=== PATIENT | female | born 1985 | race Caucasian/White ===

== ENCOUNTER 2020-04-02 14:19 | Day surgery (SDC) | payer OTHER, SELFPAY ==
[2020-04-02] VITALS (8 sets, daily range): BP systolic 94–145; BP diastolic 58–85; PULSE 83–138; RESP 14–20; TEMP 37.2–37.4; O2SAT 94–98; BMI 36.6
--- NOTE | 2020-04-02 15:51 | ED_ITS ---
Documented by User: GEOFF Ernst 04/04/20 09:23 HPI - Abdominal Pain General: Chief Complaint: Abdominal Pain Stated Complaint: Rt side pain Time Seen by Provider: 04/02/20 15:51 History of Present Illness: HPI narrative: Patient is a 34-year-old female comes to the ED with abdominal pain. Patient says at 3:00 this morning she woke up with sharp pain in right lower quadrant of abdomen. She says the pain briefly went away today but it has come back. She is also having nausea and fever. Endorses decreased appetite denies any vomiting, diarrhea, dysuria, hematuria. Associated Symptoms: Reports fever(s) and nausea; Denies chills, constipation, diarrhea, dysuria, hematochezia, hematuria and vomiting Review of Systems Const: Reports: fever(s) and change in appetite (decreased appetite); Denies: chills or fatigue Eyes: Denies: change in vision or eye discomfort ENMT: Denies: throat pain, odynophagia, nasal discharge or nasal congestion Card: Denies: chest pain, palpitations, edema, swelling of feet/ankles, dyspnea on exertion or orthopnea Resp: Denies: dyspnea, productive cough or non-productive cough GI: Reports: abdominal pain (RLQ) and nausea; Denies: vomiting, diarrhea, constipation or hematochezia : Denies: flank pain, dysuria or hematuria Musc: Denies: neck pain, back pain or extremity swelling Skin/Breast: Denies: rash or new lesions Neuro: Denies: headache(s), numbness in extremities or weakness in extremities PFS ED PFSH: Surgical History History of delivery S/P laparoscopic appendectomy (04/02/20) Physical Exam Const: COMMON NORMALS: patient oriented x3 and alert GENERAL APPEARANCE: cooperative; not comfortable (Patient appears uncomfortable and in pain.) HENMT: COMMON NORMALS: normocephalic HEAD & SCALP: normocephalic MOUTH: Normal oral and palatal mucosa present THROAT: posterior oropharynx normal and uvula midline Eye: COMMON NORMALS: Equal, round and reactive pupils present PUPIL: Yes Equal, round and reactive pupils present Neck/C-Spine: COMMON NORMALS: supple GENERAL: Yes normal visual inspection Resp: COMMON NORMALS: normal respiratory effort, No retractions, No use of accessory muscles and clear to auscultation bilaterally AUSCULTATION: clear to auscultation bilaterally Cardio: COMMON NORMALS: regular rate, regular rhythm, S1 normal heart sound present, S2 normal heart sound present, No gallops present (Cardio), No clicks present (Cardio), No murmurs present (Cardio) and Peripheral pulses 2+ throughout RATE: regular rate RHYTHM: regular rhythm HEART SOUNDS: S1 normal heart sound present and S2 normal heart sound present PERIPHERAL PULSES: Peripheral pulses 2+ throughout GI: COMMON NORMALS: Normal to inspection, nondistended, normoactive bowel sounds present, Soft to palpation and no masses PALPATION: Yes Soft to palpation and Yes Tenderness to palpation present (GI) Details: RLQ (Positive McBurney's point. Positive Rovsing sign) : COMMON NORMALS: Yes no CVA tenderness BLADDER/KIDNEY EXAM: Yes no CVA tenderness Back/Pelvis: COMMON NORMALS: no CVA tenderness Extremity: COMMON NORMALS: normal to inspection Neuro: COMMON NORMALS: patient oriented x3 SENSORIUM/ORIENTATION: Yes alert GAIT: Yes Normal gait present Skin: GENERAL SKIN EXAM: dry skin Course Vital Signs: Vital signs: Vital Signs Temperature 99.0 F 04/02/20 20:22 Pulse Rate 83 04/02/20 20:22 Respiratory Rate 18 04/02/20 20:22 Blood Pressure 117/60 04/02/20 20:22 Pulse Oximetry 98 04/02/20 20:22 MDM - Abdominal Pain Lab Data: Attestation: I reviewed the patient's lab results. Labs: Lab Results 04/02/20 04/02/20 04/02/20 Range/Units 16:06 16:06 16:06 WBC 15.9 H (4.0-10.0) 10^3/ uL RBC 4.28 (4.1-5.3) 10^6/u L Hgb 11.9 (11.5-15.3) g/dL Hct 37.0 (37.0-47.0) % MCV 86.4 (81-99) fL MCH 27.8 L (28.0-34.0) pg MCHC 32.2 (30.0-36.0) g/dL RDW 12.8 (12.1-15.1) % Plt Count 293 (130-400) 10^3/c mm MPV 9.8 (7.4-10.4) fL Neut % (Auto) 82.0 % Lymph % (Auto) 10.4 % [place] % (Auto) 6.7 % Eos % (Auto) 0.4 % Baso % (Auto) 0.2 % Neut # (Auto) 13.03 H (1.8-7.7) 10^3/u L Lymph # (Auto) 1.7 (0.8-4.8) 10^3/u L [place] # (Auto) 1.1 H (0.2-0.9) 10^3/u L Eos # (Auto) 0.1 (0.0-0.8) 10^3/u L Baso # (Auto) 0.0 (0.0-0.1) 10^3/u L Nucleated RBC % (a uto) 0 % Nucleated RBCs # 0.0 /100WBC Sodium 137 (136-145) mmol/L Potassium 3.9 (3.5-5.1) mmol/L Chloride 100 (98-107) mmol/L Carbon Dioxide 24 (22-29) mmol/L Anion Gap 16.9 (5-19) BUN 9 (6-20) mg/dL Creatinine 0.5 (0.5-0.9) mg/dL GFR Calculation 141.2 H (90-130) mL/min Glucose 108 (65-115) mg/dL Calculated Osmolal ity 283 L (285-295) mOsm/k g Calcium 9.3 (8.5-10.5) mg/dL Total Bilirubin 0.7 (0.15-1.2) mg/dL AST 14 (0-32) U/L ALT 20 (0-33) U/L Alkaline Phosphata se 68 (35-105) IU/L Total Protein 7.4 (6.6-8.7) g/dL Albumin 4.4 (3.5-5.2) g/dL Globulin 3.0 (1.3-4.6) g/dL Lipase 25 (13-60) U/L HCG, Qual Negative (Negative) Urine Color (Yellow) Urine Appearance (CLEAR) Urine pH (5-7) Ur Specific Gravit y (1.005-1.030) Urine Protein (Negative) Urine Glucose (UA) (Normal) Urine Ketones (Negative) Urine Blood (Negative) Urine Nitrate (Negative) Urine Bilirubin (Negative) Urine Urobilinogen (Negative) mg/dL Ur Leukocyte Sharon ase (Negative) Urine RBC (0-2) /hpf Urine WBC (0-5) /hpf Ur Squamous Epith Cells (0-5) /hpf Amorphous Sediment Urine Bacteria (NONE) /hpf Urine Mucus /hpf 04/02/20 04/02/20 Range/Units 16:06 16:06 WBC (4.0-10.0) 10^3/ uL RBC (4.1-5.3) 10^6/u L Hgb (11.5-15.3) g/dL Hct (37.0-47.0) % MCV (81-99) fL MCH (28.0-34.0) pg MCHC (30.0-36.0) g/dL RDW (12.1-15.1) % Plt Count (130-400) 10^3/c mm MPV (7.4-10.4) fL Neut % (Auto) % Lymph % (Auto) % [place] % (Auto) % Eos % (Auto) % Baso % (Auto) % Neut # (Auto) (1.8-7.7) 10^3/u L Lymph # (Auto) (0.8-4.8) 10^3/u L [place] # (Auto) (0.2-0.9) 10^3/u L Eos # (Auto) (0.0-0.8) 10^3/u L Baso # (Auto) (0.0-0.1) 10^3/u L Nucleated RBC % (a uto) % Nucleated RBCs # /100WBC Sodium (136-145) mmol/L Potassium (3.5-5.1) mmol/L Chloride (98-107) mmol/L Carbon Dioxide (22-29) mmol/L Anion Gap (5-19) BUN (6-20) mg/dL Creatinine (0.5-0.9) mg/dL GFR Calculation (90-130) mL/min Glucose (65-115) mg/dL Calculated Osmolal ity (285-295) mOsm/k g Calcium (8.5-10.5) mg/dL Total Bilirubin (0.15-1.2) mg/dL AST (0-32) U/L ALT (0-33) U/L Alkaline Phosphata se (35-105) IU/L Total Protein (6.6-8.7) g/dL Albumin (3.5-5.2) g/dL Globulin (1.3-4.6) g/dL Lipase (13-60) U/L HCG, Qual Negative (Negative) Urine Color Yellow (Yellow) Urine Appearance Clear (CLEAR) Urine pH 7 (5-7) Ur Specific Gravit y 1.015 (1.005-1.030) Urine Protein Neg (Negative) Urine Glucose (UA) Norm (Normal) Urine Ketones Negative (Negative) Urine Blood Neg (Negative) Urine Nitrate Negative (Negative) Urine Bilirubin Neg (Negative) Urine Urobilinogen Norm (Negative) mg/dL Ur Leukocyte Sharon ase Trace H (Negative) Urine RBC None (0-2) /hpf Urine WBC 5-10 H (0-5) /hpf Ur Squamous Epith Cells 0-4 H (0-5) /hpf Amorphous Sediment Not Reportable Urine Bacteria Trace (NONE) /hpf Urine Mucus 2+ /hpf Discharge Plan Discharge Patient Disposition: Admitted As Inpatient Condition: Stable Discharge Diet: Advance as tolerated Sign Out Sign Out Data: Patient Sign Out occurred on 04/02/20 at 17:24. Patient's care was discussed, and care was transferred from to DAISHA Magana. Coding Level of Care Code ED Boxing Promoter for Chg Fwd Exam Comprehensive Documented by User: DAISHA Magana 04/02/20 21:05 HPI - Abdominal Pain General: Chief Complaint: Abdominal Pain Stated Complaint: Rt side pain Time Seen by Provider: 04/02/20 15:51 PFSH ED PFSH: Surgical History History of delivery S/P laparoscopic appendectomy (04/02/20) Course Consultations: Consultation #1: Dr Rodriguez -CT scan and serology findings and clinical presentation discussed. Patient has penicillin allergy, recommended Cipro and Flagyl IV, plans to take patient to the OR, last meal was at a pproximately 11 AM this morning. Time: 17:50 Vital Signs: Vital signs: Vital Signs Temperature 99.0 F 04/02/20 20:22 Pulse Rate 83 04/02/20 20:22 Respiratory Rate 18 04/02/20 20:22 Blood Pressure 117/60 04/02/20 20:22 Pulse Oximetry 98 04/02/20 20:22 MDM - Abdominal Pain MDM Narrative: Medical decision making narrative: 34-year-old female patient presents to the emergency department with right lower quadrant pain since 3 AM. She reports her pain is controlled, she was updated on findings of CT scan with acute appendicitis as finding. I discussed my conversation with Dr. Rodriguez and plan to go to the operating room for appendectomy. She reports pain is controlled as long as she does not move. Questions were answered. Differential Diagnosis: Differential diagnosis abdominal pain: Likely abdominal pain and acute appendicitis Lab Data: Attestation: I reviewed the patient's lab results. Labs: Lab Results 04/02/20 04/02/20 04/02/20 Range/Units 16:06 16:06 16:06 WBC 15.9 H (4.0-10.0) 10^3/ uL RBC 4.28 (4.1-5.3) 10^6/u L Hgb 11.9 (11.5-15.3) g/dL Hct 37.0 (37.0-47.0) % MCV 86.4 (81-99) fL MCH 27.8 L (28.0-34.0) pg MCHC 32.2 (30.0-36.0) g/dL RDW 12.8 (12.1-15.1) % Plt Count 293 (130-400) 10^3/c mm MPV 9.8 (7.4-10.4) fL Neut % (Auto) 82.0 % Lymph % (Auto) 10.4 % [place] % (Auto) 6.7 % Eos % (Auto) 0.4 % Baso % (Auto) 0.2 % Neut # (Auto) 13.03 H (1.8-7.7) 10^3/u L Lymph # (Auto) 1.7 (0.8-4.8) 10^3/u L [place] # (Auto) 1.1 H (0.2-0.9) 10^3/u L Eos # (Auto) 0.1 (0.0-0.8) 10^3/u L Baso # (Auto) 0.0 (0.0-0.1) 10^3/u L Nucleated RBC % (a uto) 0 % Nucleated RBCs # 0.0 /100WBC Sodium 137 (136-145) mmol/L Potassium 3.9 (3.5-5.1) mmol/L Chloride 100 (98-107) mmol/L Carbon Dioxide 24 (22-29) mmol/L Anion Gap 16.9 (5-19) BUN 9 (6-20) mg/dL Creatinine 0.5 (0.5-0.9) mg/dL GFR Calculation 141.2 H (90-130) mL/min Glucose 108 (65-115) mg/dL Calculated Osmolal ity 283 L (285-295) mOsm/k g Calcium 9.3 (8.5-10.5) mg/dL Total Bilirubin 0.7 (0.15-1.2) mg/dL AST 14 (0-32) U/L ALT 20 (0-33) U/L Alkaline Phosphata se 68 (35-105) IU/L Total Protein 7.4 (6.6-8.7) g/dL Albumin 4.4 (3.5-5.2) g/dL Globulin 3.0 (1.3-4.6) g/dL Lipase 25 (13-60) U/L HCG, Qual Negative (Negative) Urine Color (Yellow) Urine Appearance (CLEAR) Urine pH (5-7) Ur Specific Gravit y (1.005-1.030) Urine Protein (Negative) Urine Glucose (UA) (Normal) Urine Ketones (Negative) Urine Blood (Negative) Urine Nitrate (Negative) Urine Bilirubin (Negative) Urine Urobilinogen (Negative) mg/dL Ur Leukocyte Sharon ase (Negative) Urine RBC (0-2) /hpf Urine WBC (0-5) /hpf Ur Squamous Epith Cells (0-5) /hpf Amorphous Sediment Urine Bacteria (NONE) /hpf Urine Mucus /hpf 04/02/20 04/02/20 Range/Units 16:06 16:06 WBC (4.0-10.0) 10^3/ uL RBC (4.1-5.3) 10^6/u L Hgb (11.5-15.3) g/dL Hct (37.0-47.0) % MCV (81-99) fL MCH (28.0-34.0) pg MCHC (30.0-36.0) g/dL RDW (12.1-15.1) % Plt Count (130-400) 10^3/c mm MPV (7.4-10.4) fL Neut % (Auto) % Lymph % (Auto) % [place] % (Auto) % Eos % (Auto) % Baso % (Auto) % Neut # (Auto) (1.8-7.7) 10^3/u L Lymph # (Auto) (0.8-4.8) 10^3/u L [place] # (Auto) (0.2-0.9) 10^3/u L Eos # (Auto) (0.0-0.8) 10^3/u L Baso # (Auto) (0.0-0.1) 10^3/u L Nucleated RBC % (a uto) % Nucleated RBCs # /100WBC Sodium (136-145) mmol/L Potassium (3.5-5.1) mmol/L Chloride (98-107) mmol/L Carbon Dioxide (22-29) mmol/L Anion Gap (5-19) BUN (6-20) mg/dL Creatinine (0.5-0.9) mg/dL GFR Calculation (90-130) mL/min Glucose (65-115) mg/dL Calculated Osmolal ity (285-295) mOsm/k g Calcium (8.5-10.5) mg/dL Total Bilirubin (0.15-1.2) mg/dL AST (0-32) U/L ALT (0-33) U/L Alkaline Phosphata se (35-105) IU/L Total Protein (6.6-8.7) g/dL Albumin (3.5-5.2) g/dL Globulin (1.3-4.6) g/dL Lipase (13-60) U/L HCG, Qual Negative (Negative) Urine Color Yellow (Yellow) Urine Appearance Clear (CLEAR) Urine pH 7 (5-7) Ur Specific Gravit y 1.015 (1.005-1.030) Urine Protein Neg (Negative) Urine Glucose (UA) Norm (Normal) Urine Ketones Negative (Negative) Urine Blood Neg (Negative) Urine Nitrate Negative (Negative) Urine Bilirubin Neg (Negative) Urine Urobilinogen Norm (Negative) mg/dL Ur Leukocyte Sharon ase Trace H (Negative) Urine RBC None (0-2) /hpf Urine WBC 5-10 H (0-5) /hpf Ur Squamous Epith Cells 0-4 H (0-5) /hpf Amorphous Sediment Not Reportable Urine Bacteria Trace (NONE) /hpf Urine Mucus 2+ /hpf Other Data: Other Data: Spectral Image [address] [address] [address] Scan Report Signed with Addenda Patient: Yanira Simpson #: [id number] : 1985Acct#:[id number] Age/Sex: 34 / FADM Date: 04/02/20 Loc: ERRoom/Bed: Attending Dr: Ordering Provider/Ordering MD: Nicholas Wasserman Date of Service: 04/02/20 Procedure(s): CT abdomen pelvis w con* [id number] Accession Number(s): [id number] Report Number: [id number]/CT abdomen pelvis w con* [id number] CRITICAL RESULT: The study was personally discussed on the telephone with ALONDRA Sarmiento on 04/02/2020 5:43 PM [employer]. The results were understood and acknowledged. Radiation Dose CTDIVOL = (mGy): DLP = 1448.3 (mGy-cm) Addendum Dictated By: Joana Hayden MD Addendum Signed By: Joana Hayden MDSigned Date/Time:04/02/20 1744 Addendum Cosigned By: PROCEDURE INFORMATION: Exam: CT Abdomen And Pelvis With Contrast Exam date and time: 04/02/2020 4:59 PM Age: 34 years old Clinical indication: Abdominal pain; Rebound pain; Right lower quadrant (rlq); Prior surgery; Surgery date: 6+ months; Surgery type: C section; Additional info: Rlq, n/v TECHNIQUE: Imaging protocol: Computed tomography of the abdomen and pelvis with intravenous contrast. Radiation optimization: All CT scans at this facility use at least one of these dose optimization techniques: automated exposure control; mA and/or kV adjustment per patient size (includes targeted exams where dose is matched to clinical indication); or iterative reconstruction. Contrast material: OMNIPAQUE 300; Contrast volume: 95 ml; Contrast route: INTRAVENOUS (IV); COMPARISON: No relevant prior studies available. RADIATION DOSE METRICS: Total DLP (mGy-cm): 1448.3 FINDINGS: Liver: 8 mm low-density in the right hepatic lobe has benign features. Follow-up is not necessary. Gallbladder and bile ducts: Normal. No calcified stones. No ductal dilation. Pancreas: Normal. No ductal dilation. Spleen: Normal. No splenomegaly. Adrenal glands: Normal. No mass. Kidneys and ureters: Normal. No hydronephrosis. Stomach and bowel: Unremarkable. No obstruction. No mucosal thickening. Appendix: Appendix is mildly thickened measuring 8.6 mm. There is subtle periappendiceal hazy stranding. Findings are consistent with acute appendicitis. Intraperitoneal space: Unremarkable. No free air. No significant fluid collection. Vasculature: Unremarkable. No abdominal aortic aneurysm. Lymph nodes: Unremarkable. No enlarged lymph nodes. Urinary bladder: Unremarkable as visualized. Reproductive: Unremarkable as visualized. Bones/joints: Unremarkable. No acute fracture. Soft tissues: Unremarkable. CT/CT abdomen pelvis w con* [id number] IMPRESSION: Findings consistent with acute appendicitis. Radiation Dose CTDIVOL = (mGy): DLP = 1448.3 (mGy-cm) Dictated By:Joana Hayden MD Signed By:Joana Hayden MDSigned Date/Time:04/02/201738 DD/ 37 Discharge Plan Discharge Patient Disposition: Admitted As Inpatient Condition: Stable Discharge Diet: Advance as tolerated Sign Out Sign Out Data: Patient Sign Out occurred on 04/02/20 at 17:24. Patient's care was discussed, a nd care was transferred from to DAISHA Magana. Coding Level of Care Code ED Boxing Promoter for Chg Fwd Exam Comprehensive
--- NOTE | 2020-04-02 16:01 | CTR_ITS ---
PROCEDURE INFORMATION: Exam: CT Abdomen And Pelvis With Contrast Exam date and time: 04/02/2020 4:59 PM Age: 34 years old Clinical indication: Abdominal pain; Rebound pain; Right lower quadrant (rlq); Prior surgery; Surgery date: 6+ months; Surgery type: C section; Additional info: Rlq, n/v TECHNIQUE: Imaging protocol: Computed tomography of the abdomen and pelvis with intravenous contrast. Radiation optimization: All CT scans at this facility use at least one of these dose optimization techniques: automated exposure control; mA and/or kV adjustment per patient size (includes targeted exams where dose is matched to clinical indication); or iterative reconstruction. Contrast material: OMNIPAQUE 300; Contrast volume: 95 ml; Contrast route: INTRAVENOUS (IV); COMPARISON: No relevant prior studies available. RADIATION DOSE METRICS: Total DLP (mGy-cm): 1448.3 FINDINGS: Liver: 8 mm low-density in the right hepatic lobe has benign features. Follow-up is not necessary. Gallbladder and bile ducts: Normal. No calcified stones. No ductal dilation. Pancreas: Normal. No ductal dilation. Spleen: Normal. No splenomegaly. Adrenal glands: Normal. No mass. Kidneys and ureters: Normal. No hydronephrosis. Stomach and bowel: Unremarkable. No obstruction. No mucosal thickening. Appendix: Appendix is mildly thickened measuring 8.6 mm. There is subtle periappendiceal hazy stranding. Findings are consistent with acute appendicitis. Intraperitoneal space: Unremarkable. No free air. No significant fluid collection. Vasculature: Unremarkable. No abdominal aortic aneurysm. Lymph nodes: Unremarkable. No enlarged lymph nodes. Urinary bladder: Unremarkable as visualized. Reproductive: Unremarkable as visualized. Bones/joints: Unremarkable. No acute fracture. Soft tissues: Unremarkable. CT/CT abdomen pelvis w con* [id number] IMPRESSION: Findings consistent with acute appendicitis. Radiation Dose CTDIVOL = (mGy): DLP = 1448.3 (mGy-cm)
[2020-04-02 16:14] LABS: Basophils % 0.2 %; Eosinophils # 0.1 10^3/uL (0.0-0.8); Eosinophils % 0.4 %; Hemoglobin 11.9 g/dL (11.5-15.3); Lymphocytes # 1.7 10^3/uL (0.8-4.8); Lymphocytes % 10.4 %; Mean Corpuscular HGB Conc 32.2 g/dL (30.0-36.0); Mean Corpuscular Hemoglobin 27.8 pg (28.0-34.0); Mean Corpuscular Volume 86.4 fL (81-99); Mean Platelet Volume 9.8 fL (7.4-10.4); Monocytes # 1.1 10^3/uL (0.2-0.9); Monocytes % 6.7 %; Neutrophils # 13.03 10^3/uL (1.8-7.7); Nucleated Red Blood Cells % 0 %; Platelet Count 293 10^3/cmm (130-400); Red Blood Count 4.28 10^6/uL (4.1-5.3); Red Cell Distribution Width 12.8 % (12.1-15.1); White Blood Count 15.9 10^3/uL (4.0-10.0)
[2020-04-02] MEDS: sodium chloride 0.9% 1,000 ML 999 ML IV (16:14)
[2020-04-02] MEDS: morphine 4 mg/mL SDV 1 mL 2 MG IVP (16:14)
[2020-04-02] MEDS: ondansetron 2 mg/ML SDV 2 mL 4 MG IVP (16:14)
[2020-04-02 16:15] LABS: HCG Qualitative Urine. Negative (Negative)
[2020-04-02 16:30] LABS: HCG, Serum Qual Negative (Negative)
[2020-04-02 16:35] LABS: Alanine Aminotransferase 20 U/L (0-33); Albumin Level 4.4 g/dL (3.5-5.2); Alkaline Phosphatase 68 IU/L (35-105); Anion Gap 16.9 (5-19); Aspartate Amino Transferase 14 U/L (0-32); Blood Urea Nitrogen 9 mg/dL (6-20); Calcium 9.3 mg/dL (8.5-10.5); Carbon Dioxide 24 mmol/L (22-29); Chloride 100 mmol/L (98-107); Glomerular Filtration Rate 141.2 mL/min (90-130); Glucose 108 mg/dL (65-115); Lipase 25 U/L (13-60); Osmolality Calculated 283 mOsm/kg (285-295); Potassium 3.9 mmol/L (3.5-5.1); Sodium 137 mmol/L (136-145); Total Bilirubin 0.7 mg/dL (0.15-1.2); Total Protein 7.4 g/dL (6.6-8.7)
[2020-04-02 16:55] LABS: Specific Gravity, Urine 1.015 (1.005-1.030); Urine Appearance Clear (CLEAR); Urine Color Yellow (Yellow); pH Urine 7 (5-7)
[2020-04-02 16:56] LABS: Add Urine Microscopic? YES; Bilirubin Urine Neg (Negative); Blood Urine Neg (Negative); Glucose Urine UA Norm (Normal); Ketones Urine Negative (Negative); Leukocyte Esterase Urine Trace (Negative); Nitrate Urine Negative (Negative); Protein Urine Neg (Negative); Urobilinogen Urine Norm (Negative)
[2020-04-02 16:57] LABS: Bacteria Urine TRACE /hpf; Squamous Epithelial Cell Urine 0-4 /hpf (0-5)
[2020-04-02 16:58] LABS: Add Urine Culture? No; Mucus Urine 2+ /hpf
[2020-04-02] MEDS: iohexol 300 mg/mL 100 mL Btl IV (17:04)
[2020-04-02] MEDS: morphine 4 mg/mL SDV 1 mL IVP (18:02)
[2020-04-02] MEDS: ciprofloxacin 400 MG/200 ML PREMIX 200 MG IV (18:03)
--- NOTE | 2020-04-02 18:23 | P.HP_ITS ---
Providers/Chief Complaint Chief Complaint: Rt side pain History of Present Illness Daly Simpson is a 34 year old female who presented to the ER today with complaints of right lower quadrant with started at 3 AM this morning. Patient had some nausea but no vomiting. Patient had a low-grade fever. Denies any constipation or diarrhea. No similar episodes in the past. Patient is otherwi se healthy and is undergoing work-up for fatigue with a specialist at [facility] Review of Systems General: Reports: 10 or more systems reviewed and unremarkable except in HPI and below Medications/Allergies Home Medications Medication Instructions Recorded Confirmed Last Taken Type Adrenevive 1 tab PO DAILY 04/02/20 04/02/20 04/01/20 History hydrocodone-acetaminophen [[place]] 1 tab PO Q6H 7 Days #20 tab 04/02/20 Unknown Rx iron 1 tab PO DAILY 04/02/20 04/02/20 04/01/20 History lactobacillus combination no.4 3,000 mmu cells PO DAILY 04/02/20 04/02/20 04/01/20 History [Probiotic] vitamin D3-vitamin K2 1 cap PO DAILY 04/02/20 04/02/20 04/01/20 History Allergies Allergy/AdvReac Type Severity Reaction Status Date / Time Penicillins Allergy Unknown Verified 04/02/20 14:34 PFSH Acute PFSH: Surgical History History of delivery S/P laparoscopic appendectomy (04/02/20) Vitals/I&O/Wt Last Vital Signs Temp 99.3 F 04/02/20 14:36 Pulse 115 H 04/02/20 14:36 Resp 14 04/02/20 14:36 BP 131/84 04/02/20 14:36 Pulse Ox 98 04/02/20 14:36 Weight last 48 hrs Weight 234 lb Physical Exam Narrative: EXAM NARRATIVE: HEENT: Normocephalic Eye: Sclera /conjunctiva normal Respiratory and chest: Bilateral clear breath sounds on auscultation Cardiovascular: Normal S1 and S2 heart sounds Abdomen: Soft to palpation, tender right lower quadrant, no guarding or rigidity, Rovsing sign positive Neurological: Oriented to place person and time Skin: Intact, no lesions appreciated on gross exam Data : 04/02/20 16:06 04/02/20 16:06 A&P Assessment and plan (1) Acute appendicitis: 34-year-old female with 16-hour history of right lower quadrant pain, leukocytosis and CT scan showing acute appendicitis. Plan for laparoscopic possible open appendectomy Procedure, risks, benefits and alternatives have been discussed with the patient who wishes to proceed with surgery. 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
--- NOTE | 2020-04-02 18:41 | ANES.PREANE2 ---
Pre-Anesthetic Assessment Pre-Anesthetic Assessment: Height/Weight: Height 1.7 m Weight 106.141 kg Temp Pulse Resp BP Pulse Ox 99.3 F 138 H 16 145/85 98 04/02/20 14:36 04/02/20 18:33 04/02/20 18:33 04/02/20 18:33 04/02/20 18:33 Preop Diagnosis: Acute appendicitis Proposed Procedure: Operation Date: 04/02/20 18:15 Proposed Procedures p Laparoscopic Appendectomy(Not Applicable) - Drew Rodriguez MD Was Beta Fernando taken within 24 hours: N/A Social: Social History: No alcohol and No tobacco (history quit 3 year ago) Exam: Pre-Anes Outpt Exam: alert, oriented x 3, clear to auscultation bilaterally and regular rate & rhythm Airway: Submandibular: WNL Cervical ROM: WNL MP: 2 Dentition: Full History/ROS: Other Pulmonary: Pulmonary: SOB (due to anemia) CV/HEM: CV/HEM: Anemia, Arrythmia and DVT (small in lower extremities but resolved) : : None reported Hepatic: Hepatic: None reported GI: GI: None reported Metabolic: Metabolic: None reported Musc/skel: Musc/skel: None reported Neuropsych: Neuropsych: Anxiety and Depression Anesthetic Plan: ASA status: 2 Anesthesia: General Risk of > 500 ml blood loss (7ml/kg in children): No Meds/Allergies Current Medications: Current Medications Generic Name Dose Route Start Last Admin Trade Name Freq PRN Reason Stop Dose Admin Ciprofloxacin/Dext bruce 400 mg in 200 mls @ 200 mls/hr 04/02/20 17:49 04/02/20 18:03 Cipro IV 04/02/20 18:48 200 mls/hr [employer] ONE Administration Protocol PFS Anesthesia PFSH: Surgical History (Updated 04/02/20 @ 18:51 by Drew Rodriguez MD) History of delivery S/P laparoscopic appendectomy (04/02/20) Data Anesthesia CBC & Chem 7: 04/02/20 16:06 04/02/20 16:06 Other Labs: Laboratory Results - last 48 hr 04/02/20 04/02/20 04/02/20 16:06 16:06 16:06 WBC 15.9 H RBC 4.28 Hgb 11.9 Hct 37.0 MCV 86.4 MCH 27.8 L MCHC 32.2 RDW 12.8 Plt Count 293 MPV 9.8 Neut % (Auto) 82.0 Lymph % (Auto) 10.4 Caroline % (Auto) 6.7 Eos % (Auto) 0.4 Baso % (Auto) 0.2 Neut # (Auto) 13.03 H Lymph # (Auto) 1.7 Caroline # (Auto) 1.1 H Eos # (Auto) 0.1 Baso # (Auto) 0.0 Nucleated RBC % (auto) 0 Nucleated RBCs # 0.0 Sodium 137 Potassium 3.9 Chloride 100 Carbon Dioxide 24 Anion Gap 16.9 BUN 9 Creatinine 0.5 GFR Calculation 141.2 H Glucose 108 Calculated Osmolality 283 L Calcium 9.3 Total Bilirubin 0.7 AST 14 ALT 20 Alkaline Phosphatase 68 Total Protein 7.4 Albumin 4.4 Globulin 3.0 Lipase 25 HCG, Qual Negative Urine Color Urine Appearance Urine pH Ur Specific Williamson Urine Protein Urine Glucose (UA) Urine Ketones Urine Blood Urine Nitrate Urine Bilirubin Urine Urobilinogen Ur Leukocyte Esterase Urine RBC Urine WBC Ur Squamous Epith Cells Amorphous Sediment Urine Bacteria Urine Mucus 04/02/20 04/02/20 16:06 16:06 WBC RBC Hgb Hct MCV MCH MCHC RDW Plt Count MPV Neut % (Auto) Lymph % (Auto) Caroline % (Auto) Eos % (Auto) Baso % (Auto) Neut # (Auto) Lymph # (Auto) Caroline # (Auto) Eos # (Auto) Baso # (Auto) Nucleated RBC % (auto) Nucleated RBCs # Sodium Potassium Chloride Carbon Dioxide Anion Gap BUN Creatinine GFR Calculation Glucose Calculated Osmolality Calcium Total Bilirubin AST ALT Alkaline Phosphatase Total Protein Albumin Globulin Lipase HCG, Qual Negative Urine Color Yellow Urine Appearance Clear Urine pH 7 Ur Specific Williamson 1.015 Urine Protein Neg Urine Glucose (UA) Norm Urine Ketones Negative Urine Blood Neg Urine Nitrate Negative Urine Bilirubin Neg Urine Urobilinogen Norm Ur Leukocyte Esterase Trace H Urine RBC None Urine WBC 5-10 H Ur Squamous Epith Cells 0-4 H Amorphous Sediment Not Reportable Urine Bacteria Trace Urine Mucus 2+ Cardiac Studies: No Data to Display
[2020-04-02] MEDS: metroNIDAZOLE IV 500 MG/100 ML PREMIX 100 MG IV (19:05)
--- NOTE | 2020-04-02 19:38 | PM.OP ---
Operative Report Date of procedure: April 02, 2020 Pre-op Diagnosis: Acute appendicitis Post-op diagnosis: same Procedure Done: Laparoscopic appendectomy Specimens removed/disposition: appendix Surgeon: Drew Rodriguez Anesthesia: General Estimated blood loss (mL): 5 Condition: stable Disposition: PACU Procedure: The patient was taken to the Operating Room and intubated under general anesthesia after antibiotic had been administered. Using a 15 blade, a 1-cm infraumbilical incision was made and using open Yaakov technique, the peritoneal cavity was entered. A 12mm port with balloon was placed and 14 mm of pneumoperitoneum was created and 10-mm 30 degree scope was introduced. Two separate 5mm ports were placed in the left and right lower quadrant under direct visualization. The appendix was noted in the right lower quadrant and appeared acutely inflamed.. Using [place] forceps, an opening was made in the mesoappendix near the base of the appendix. An Endo TANGELA stapler 45mm long 3.5mm blue load was introduced to divide the appendix at it's base. Using electrocautery, the mesoappendix including the appendicular artery was divided. There was no bleeding noted and the staple line appeared intact. The right lower quadrant was irrigated with saline and an EndoCatch bag was introduced to remove the appendix. All three ports were removed under direct visualization and there was no bleeding noted on the port sites. 10 0.5% Marcaine was infiltrated at the port sites. The fascia at the umbilical port was closed using figure of eight 0-Vicryl sutures and subcutaneous tissue was approximated using 3-0 Vicryl and skin at all 3 port sites was closed using 4-0 Monocryl and Dermabond.
--- NOTE | 2020-04-02 20:01 | P.PCN_ITS ---
PACU note PACU note: VSS, Good respiratory effort, report to [employer] CONSULTANT Post-Anesthesia Exam: awake
--- NOTE | 2020-04-02 20:01 | PM.PACU ---
PACU note PACU note: VSS, Good respiratory effort, report to MANAGER LINE Post-Anesthesia Exam: awake
== END 2020-04-02 20:42 | disposition home or self-care (01) ==
LOC: ER 17:24 → OR 17:51
PROVIDERS: Family Medicine; Physician Assistant; Emergency Provider Nurse Practitioner Family; Visit Provider Surgery
PROC: 0DTJ4ZZ Resection of Appendix, Percutaneous Endoscopic Approach (ICD-10-PCS; CPT 44970; principal; 2020-04-02 18:15)
DX: K35.80 Unspecified acute appendicitis (principal); Z86.718 Personal history of other venous thrombosis and embolism
CPT/HCPCS: 44970; 12345; 74177; 80053; 81001; 81025; 83690; 84703; 85025; 88304; 99283; J0744; J1100; J1885; J2270; J2405; J2704; J2710; J3010; J3490; J7030; Q9967; S0030

== ENCOUNTER 2021-05-23 12:43 | Emergency (ER) | payer OTHER, SELFPAY ==
[2021-05-23 13:16] VITALS: BP 149/95; PULSE 110; RESP 18; TEMP 36.8; O2SAT 100; BMI 35.6
--- NOTE | 2021-05-23 13:34 | XR_ITS ---
WS: [id number] Portable AP upright chest, 05/23/2021 Clinical Data: dyspnea; palpitations Comparison: Portable chest, 12/03/2017. Findings: No nodules, masses or effusions are seen. The heart is normal. The pulmonary vascularity is not increased. No pneumonia or pneumothorax is seen. Monitor leads are on the chest wall. XR/XR chest 1V portable [id number] Impression: Negative chest.
--- NOTE | 2021-05-23 13:38 | W.ED.CHESTPA ---
HPI - Chest Pain General: Chief Complaint: Chest Pain Stated Complaint: heart paplations Time Seen by Provider: 05/23/21 13:23 Source: patient Mode of arrival: ambulatory Limitations: no limitations History of Present Illness: Patient states that she noticed palpitations and tachycardia and mild shortness of breath starting around 10:45 AM. She states this happened shortly after having sexual intercourse. She states she still has mild palpitations now but has much improved. She states she has had palpitations and tachycardia intermittently over the past year. However over the past 2 months, she has had increased and palpitations and tachycardia after having Covid 2 months ago. She denies any history of thyroid disease. She has had superficial blood clots in her leg during . She denies any history of blood clots in her lung. She states she recently got diagnosed with lupus. She states she has had palpitations her entire life with tachycardia started in the past year. She states she is on no medications. She denies control pills. She is allergic penicillin. She had appendectomy in March of last year. She is also has . She states she had 1 cup of caffeinated coffee this morning. She denies tobacco or alcohol use. She denies any chest pain. Relieving factors: rest Exacerbating factors: exertion Context: recent illness (COVID 2 months ago) Associated symptoms: Reports dyspnea and palpitations; Deny abdominal pain, diaphoresis, fever(s), leg edema, nausea, syncope or vomiting Review of Systems Const: Denies: fever(s) or diaphoresis Eyes: Denies: change in vision ENMT: Denies: throat pain Card: Reports: palpitations, irregular heart rhythm and other (Tachycardia); Denies: chest pain or syncope Resp: Reports: dyspnea; Denies: productive cough, non-productive cough or wheezing GI: Denies: abdominal pain, nausea, vomiting or diarrhea : Denies: flank pain Musc: Denies: neck pain, back pain or extremity pain Skin/Breast: Denies: rash or pruritus Neuro: Denies: headache(s), numbness in extremities or weakness in extremities Psych: Denies: anxiety Rolando/Lymph: Denies: enlarged lymph nodes PFSH ED PFSH: Surgical History History of delivery S/P laparoscopic appendectomy (04/02/20) Physical Exam Const: COMMON NORMALS: no acute distress, patient oriented x3, no limitations and well nourished GENERAL APPEARANCE: cooperative OTHER: Obese; telemetry shows normal sinus rhythm heart rate 96. Telemetry does fluctuate to mild sinus tachycardia with heart rate of 100-105. HENMT: COMMON NORMALS: normocephalic and atraumatic HEAD & SCALP: normocephalic and atraumatic FACE & SINUS: normal facial exam Eye: COMMON NORMALS: EOMs intact bilaterally Neck/C-Spine: COMMON NORMALS: full ROM, no lymphadenopathy, supple, no meningeal signs and Thyroid normal GENERAL: Yes normal visual inspection THYROID: Thyroid normal Lymph: LYMPHATIC: no lymphadenopathy noted Chest: COMMONS NORMALS: normal inspection of the chest and normal palpation of entire chest wall CHEST: No Ecchymosis present and No rash Resp: COMMON NORMALS: normal respiratory effort, No retractions and clear to auscultation bilaterally EFFORT & INSPECTION: No respiratory distress AUSCULTATION: clear to auscultation bilaterally Cardio: COMMON NORMALS: regular rate, regular rhythm and Peripheral pulses 2+ throughout JUGULAR VENOUS DISTENTION: no JVD RATE: regular rate RHYTHM: regular rhythm PERIPHERAL PULSES: Peripheral pulses 2+ throughout GI: COMMON NORMALS: Normal to inspection, nondistended, normoactive bowel sounds present and non-tender : COMMON NORMALS: Yes no CVA tenderness BLADDER/KIDNEY EXAM: Yes no CVA tenderness Back/Pelvis: COMMON NORMALS: no CVA tenderness Extremity: COMMON NORMALS: normal to inspection, full ROM and capillary refill normal Neuro: COMMON NORMALS: patient oriented x3, CN's II-XII intact bilaterally, no focal motor deficits and no sensory deficits noted MENINGEAL SIGNS: Yes no meningeal signs Psych: COMMON NORMALS: mental status grossly normal and Normal thought process present THOUGHT PROCESS: Normal thought process present Skin: COMMON NORMALS: no rashes or lesions noted and no wounds GENERAL SKIN EXAM: no rashes or lesions noted Course Reevaluation(s): Reevaluation #1: 1725: Patient is feeling well. Heart rate 86 and normal sinus rhythm with blood pressure 113/81. Oxygen saturation 96%. I discussed findings of CT angiogram and laboratory tests with patient. She declined admission to the hospital for further cardiac work-up. She will follow up with her primary care physician tomorrow for possible cardiology referral. I will give her the liquefaction and regasification helper name that is on-call. I advised her to discontinue any kind of stimulants including caffeine chocolate energy drinks or decongestants. Vital Signs: Vital signs: Vital Signs Temperature 98.3 F 05/23/21 13:16 Pulse Rate 87 05/23/21 15:48 Respiratory Rate 16 05/23/21 15:48 Blood Pressure 131/91 05/23/21 15:48 Pulse Oximetry 95 05/23/21 15:48 MDM - Chest Pain Medical Decision Making Possible arrhythmia, sinus tachycardia, or pulmonary embolus Lab Data : 05/23/21 15:31 05/23/21 14:44 Radiology Impressions Chest X-Ray 05/23/21 13:34 Impression: Negative chest. Chest CTA 05/23/21 16:13 IMPRESSION: 1. Proximal main pulmonary arteries are normal. No evidence of pulmonary embolus. 2. Both lungs are well aerated. No acute pulmonary infiltrates. 3. No other acute findings. Laboratory Results WBC 8.3 10^3/uL (4.0-10.0) 05/23/21 15:31 RBC 4.05 10^6/uL (4.1-5.3) L 05/23/21 15:31 Hgb 11.4 g/dL (11.5-15.3) L 05/23/21 15:31 Hct 35.0 % (37.0-47.0) L 05/23/21 15:31 MCV 86.4 fl (81-99) 05/23/21 15:31 MCH 28.1 pg (28.0-34.0) 05/23/21 15:31 MCHC 32.6 g/dL (30.0-36.0) 05/23/21 15:31 RDW 11.7 % (12.1-15.1) L 05/23/21 15:31 Plt Count 269 10^3/cmm (130-400) 05/23/21 15:31 MPV 10.3 fL (7.4-10.4) 05/23/21 15:31 Neut % (Auto) 71.1 % 05/23/21 15:31 Lymph % (Auto) 21.9 % 05/23/21 15:31 [place] % (Auto) 6.2 % 05/23/21 15:31 Eos % (Auto) 0.2 % 05/23/21 15:31 Baso % (Auto) 0.4 % 05/23/21 15:31 Neut # (Auto) 5.92 10^3/uL (1.8-7.7) 05/23/21 15:31 Lymph # (Auto) 1.8 10^3/uL (0.8-4.8) 05/23/21 15:31 [place] # (Auto) 0.5 10^3/uL (0.2-0.9) 05/23/21 15:31 Eos # (Auto) 0.0 10^3/uL (0.0-0.8) 05/23/21 15:31 Baso # (Auto) 0.0 10^3/uL (0.0-0.1) 05/23/21 15:31 Nucleated RBC % (auto) 0 % 05/23/21 15: Nucleated RBCs # 0.0 /100WBC 05/23/21 15:31 APTT 28.1 SECONDS (23.9-36.7) 05/23/21 14:14 D-Dimer 0.40 ug/mIFEU (0-0.59) 05/23/21 14:14 Sodium 137 mmol/L (136-145) 05/23/21 14:44 Potassium 3.5 mmol/L (3.5-5.1) 05/23/21 14:44 Chloride 104 mmol/L (98-107) 05/23/21 14:44 Carbon Dioxide 20 mmol/L (22-29) L 05/23/21 14:44 Anion Gap 16.5 (5-19) 05/23/21 14:44 BUN 7 mg/dL (6-20) 05/23/21 14:44 Creatinine 0.4 mg/dL (0.5-0.9) L 05/23/21 14:44 GFR Calculation 181.6 mL/min (90-130) H 05/23/21 14:44 Glucose 92 mg/dL (65-115) 05/23/21 14:44 Calculated Osmolality 282 mOsm/kg (285-295) L 05/23/21 14:44 Calcium 8.4 mg/dL (8.5-10.5) L 05/23/21 14:44 Magnesium 1.7 mg/dL (1.7-2.3) 05/23/21 14:44 Total Bilirubin 0.3 mg/dL (0.15-1.2) 05/23/21 14:44 AST 18 U/L (0-32) 05/23/21 14:44 ALT 18 U/L (0-33) 05/23/21 14:44 Alkaline Phosphatase 60 IU/L (35-105) 05/23/21 14:44 Troponin T Baseline 6 ng/L (0-10) 05/23/21 14:14 Total Protein 6.7 g/dL (6.6-8.7) 05/23/21 14:44 Albumin 4.4 g/dL (3.5-5.2) 05/23/21 14:44 Globulin 2.3 g/dL (1.3-4.6) 05/23/21 14:44 TSH 0.93 uIU/mL (0.27-4.20) 05/23/21 14:44 HCG, Qual Negative (Negative) 05/23/21 14:14 SARS-CoV-2 Ag (Rapid) Negative (Negative) 05/23/21 14:14 Imaging Data CXR: I personally reviewed and interpreted this imaging study as follows: My impression: Nothing acute. No infiltrate or pneumothorax Radiologist's impression: Date of Service: 05/23/21 Procedure(s): XR chest 1V portable [id number] Accession Number(s): [id number] Report Number: [id number] WS: [id number] Portable AP upright chest, 05/23/2021 Clinical Data: dyspnea; palpitations Comparison: Portable chest, 12/03/2017. Findings: No nodules, masses or effusions are seen. The heart is normal. The pulmonary vascularity is not increased. No pneumonia or pneumothorax is seen. Monitor leads are on the chest wall. XR/XR chest 1V portable [id number] Impression: Negative chest. ? Dictated By: Thea Gonsalez MD Signed By: Thea Gonsalez MD Signed Date/Time: 05/23/21 1350 CTA Chest: Radiologist's impression: Date of Service: 05/23/21 Procedure(s): CT angio chest 10162 Accession Number(s): [id number] Report Number: [id number] WS: [email or web address] CTA THORACIC TECHNIQUE: Contrast enhanced CTA of the thoracic aorta with coronal and sagittal reformatted images and maximum intensity projection (MIP) images. CLINICAL INFORMATION: shortness of breath; tachycardia COMPARISON: None. DLP: 555.[address] scans at [facility] use at least one of these dose optimization techniques: automated exposure control; mA and/or kV adjustment per patient size (includes targeted exams where dose is matched to clinical indication); or iterative reconstruction. FINDINGS: Proximal main pulmonary arteries are normal. Normal segmental and subsegmental pulmonary arteries. No evidence of pulmonary embolus. Both lungs are well aerated. No acute pulmonary infiltrates. No focal pneumonia or pleural fluid. Adrenal glands are normal. Normal GE junction. Small hepatic cyst in the RIGHT hepatic lobe. CT/CT angio chest [id number] IMPRESSION: ? 1.? Proximal main pulmonary arteries are normal. No evidence of pulmonary embolus. 2.? Both lungs are well aerated. No acute pulmonary infiltrates. 3.? No other acute findings. ? Dictated By: Logan Mendes MD Signed By: Logan Mendes MD Signed Date/Time: 05/23/21 1649 EKG Data EKG 1: I personally reviewed and interpreted this EKG as follows: EKG interpretation date: 05/23/21 EKG interpretation time: 13:25 Prior EKG tracings: not available for review Interpretation: Sinus tachycardia hr [address]-T changes throughout. Normal axis. Normal QRS, normal [place] interval, normal P wave normal T waves. No previous EKG to compare to. EKG 2: I personally reviewed and interpreted this EKG as follows: EKG interpretation date: 05/23/21 EKG interpretation time: 13:25 Prior EKG tracings: available for review Interpretation: Sinus tachycardia with heart rate 124. Worsening nonspecific changes in the inferior lateral leads. Borderline ischemic changes in 2 3 aVF V5 and V6. Normal [place] interval, normal T waves, normal QRS. Compared to EKG a minute prior, ST segment appears worse. Discharge Plan Discharge Patient Disposition: Home Clinical Impression: Sinus tachycardia, Heart palpitations Condition: Stable Prescriptions: No Action Adrenevive 1 tab PO BEDTIME 0RF Probiotic 3 billion cell Capsule 3,000 mmu cells PO EVERY OTHER DAY 0RF iron 325 mg (65 mg iron) Tablet 325 mg PO DAILY 0RF magnesium 100 mg Tablet 100 mg PO BID 0RF Vitamin D3 125 mcg (5,000 unit) Tablet 125 mcg PO DAILY 0RF Discharge Orders: Discharge ED (Routine); Ordered 05/23/21 Ordered By: William Mahmood Referrals: Brian Marie M.D [Physician] - 1-3 days (Follow-up for cardiology evaluation tachycardia.) Discharge Diet: Cardiac Discharge Activity: Increase activity as tolerated Patient Instructions: Tachycardia (ED) Activity Restrictions/Additional Instructions: Follow-up with your family doctor tomorrow for cardiology referral. Avoid caffeine, energy drinks, chocolate, decongestants. Drink plenty water. Rest. Return if symptoms worsen. 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
[2021-05-23 13:39] VITALS: BP 122/83; PULSE 99; RESP 16; O2SAT 100
[2021-05-23 14:08] VITALS: BP 144/87; PULSE 98; RESP 16; O2SAT 100
[2021-05-23 14:38] VITALS: BP 144/87; PULSE 81; O2SAT 95
[2021-05-23 14:45] LABS: Partial Thromboplastin Time 28.1 SECONDS (23.9-36.7)
--- NOTE | 2021-05-23 14:45 | ECG_ITS ---
[facility] Test Date: 2021-05-23 Pat Name: Daly Simpson Department: Room: Gender: Female Front Services Agent: : [id number] Requested By: William Berry Order Number: [id number] Catracho MD: Brian Marie M.D. Measurements Intervals [place] Rate: 116 P: 73 MA: 137 QRS: 29 QRSD: 97 T: 34 QT: 357 QTc: 498 Interpretive Statements SINUS TACHYCARDIA INCOMPLETE RIGHT BUNDLE BRANCH BLOCK [90+ ms QRS DURATION, TERMINAL R IN V1/V2, 40+ ms S IN I/aVL/V4/V5/V6] NONSPECIFIC ST & T-WAVE ABNORMALITY Compared to ECG 12/03/2017 16:15:48 T-wave abnormality now present Sinus rhythm no longer present Electronically Signed On 05-23-2021 16:04:27 MEDICAL RESEARCH ASSISTANT by Brian Marie M.D. [id number]
[2021-05-23 14:49] LABS: HCG, Serum Qual Negative (Negative)
[2021-05-23 14:58] LABS: Troponin(5th) Baseline 6 ng/L (0-10)
[2021-05-23 14:59] LABS: SARS Covid-2 Antigen Negative (Negative)
[2021-05-23 15:33] LABS: Alanine Aminotransferase 18 U/L (0-33); Albumin Level 4.4 g/dL (3.5-5.2); Alkaline Phosphatase 60 IU/L (35-105); Anion Gap 16.5 (5-19); Aspartate Amino Transferase 18 U/L (0-32); Blood Urea Nitrogen 7 mg/dL (6-20); Calcium 8.4 mg/dL (8.5-10.5); Carbon Dioxide 20 mmol/L (22-29); Chloride 104 mmol/L (98-107); Globulin 2.3 g/dL (1.3-4.6); Glomerular Filtration Rate 181.6 mL/min (90-130); Glucose 92 mg/dL (65-115); Magnesium 1.7 mg/dL (1.7-2.3); Osmolality Calculated 282 mOsm/kg (285-295); Potassium 3.5 mmol/L (3.5-5.1); Sodium 137 mmol/L (136-145); Thyroid Stimulating Hormone 0.93 uIU/mL (0.27-4.20); Total Bilirubin 0.3 mg/dL (0.15-1.2); Total Protein 6.7 g/dL (6.6-8.7)
[2021-05-23 15:47] LABS: Basophils % 0.4 %; Eosinophils % 0.2 %; Hemoglobin 11.4 g/dL (11.5-15.3); Lymphocytes # 1.8 10^3/uL (0.8-4.8); Lymphocytes % 21.9 %; Mean Corpuscular HGB Conc 32.6 g/dL (30.0-36.0); Mean Corpuscular Hemoglobin 28.1 pg (28.0-34.0); Mean Corpuscular Volume 86.4 fl (81-99); Mean Platelet Volume 10.3 fL (7.4-10.4); Monocytes # 0.5 10^3/uL (0.2-0.9); Monocytes % 6.2 %; Neutrophils # 5.92 10^3/uL (1.8-7.7); Neutrophils % 71.1 %; Nucleated Red Blood Cells % 0 %; Platelet Count 269 10^3/cmm (130-400); Red Blood Count 4.05 10^6/uL (4.1-5.3); Red Cell Distribution Width 11.7 % (12.1-15.1); White Blood Count 8.3 10^3/uL (4.0-10.0)
[2021-05-23 15:48] VITALS: BP 131/91; PULSE 87; RESP 16; O2SAT 95
--- NOTE | 2021-05-23 16:13 | CT_ITS ---
WS: [email or web address] CTA THORACIC TECHNIQUE: Contrast enhanced CTA of the thoracic aorta with coronal and sagittal reformatted images a nd maximum intensity projection (MIP) images. CLINICAL INFORMATION: shortness of breath; tachycardia COMPARISON: None. DLP: 555.[address] scans at [facility] use at least one of these dose optimization techniques: automated e xposure control; mA and/or kV adjustment per patient size (includes targeted exams where dose is matc hed to clinical indication); or iterative reconstruction. FINDINGS: Proximal main pulmonary arteries are normal. Normal segmental and subsegmental pulmonary arteries. No evidence of pulmonary embolus. Both lungs are well aerated. No acute pulmonary infiltrates. No focal pneumonia or pleural fluid. Adr enal glands are normal. Normal GE junction. Small hepatic cyst in the RIGHT hepatic lobe. CT/CT angio chest [id number] IMPRESSION: 1. Proximal main pulmonary arteries are normal. No evidence of pulmonary embol us. 2. Both lungs are well aerated. No acute pulmonary infiltrates. 3. No other acute findings.
[2021-05-23] MEDS: iohexol 350 mg/mL 100 mL Btl IV (16:27)
[2021-05-23 17:42] VITALS: BP 113/81; PULSE 84; RESP 14; O2SAT 95
[2021-05-23 18:46] LABS: Troponin 5 2HR Delta 0 ABS# (0-10)
== END 2021-05-23 17:43 | disposition home or self-care (01) ==
PROVIDERS: Emergency Provider Family Medicine
DX: R00.2 Palpitations (principal); R00.0 Tachycardia, unspecified
CPT/HCPCS: 71045; 71275; 80053; 83735; 84443; 84484; 84703; 85025; 85378; 85730; 87426; 93005; 99283; Q9967